=== PATIENT | female | born 1945 | race Caucasian/White ===

== ENCOUNTER 2020-06-25 17:41 | Inpatient (IN) | payer MEDICARE, OTHER ==
[~2020-06-25] VITALS: Ht 162.6 cm; Wt 66.2 kg
[2020-06-25] MEDS ORDERED: CARVEDILOL 3.125 MG TAB PO ONE (19:15)
[2020-06-25 19:18] LABS: Basophils # (auto) 0.1 10 ^3/uL (0-0.2); Basophils % (auto) 0.7 % (0.0-2.0); Eosinophils # (auto) 0.1 10 ^3/uL (0-0.8); Eosinophils % (auto) 0.4 % (0.0-7.0); Hematocrit 46.9 % (36.0-46.0); Hemoglobin 16.2 g/dL (12.2-16.2); Lymphocytes # (auto) 1.9 10 ^3/uL (0.4-5.4); Lymphocytes % (auto) 15.5 % (10.0-50.0); Mean Corpuscular Hemoglobin 30.5 pg (28.0-32.0); Mean Corpuscular Hgb Conc. 34.4 g/dL (32.0-36.0); Mean Corpuscular Volume 88.6 fL (80.0-100.0); Monocytes # (auto) 1.5 10 ^3/uL (0-1.3); Monocytes % (auto) 12.1 % (0.0-12.0); Neutrophils # (auto) 8.6 10 ^3/uL (1.6-8.6); Neutrophils % (auto) 71.3 % (37.0-80.0); Platelet Count (auto) 213 10^3/uL (140-450); Red Cell Distribution Width 13.4 % (11.8-14.3); White Blood Cell 12.1 10^3/uL (4.4-10.8)
[2020-06-25 19:38] LABS: Alanine Aminotransferase 31 U/L (13-56); Albumin 3.7 g/dL (3.4-5.0); Anion Gap 8 (5-15); Aspartate Aminotransferase 28 U/L (15-37); BUN/Creatinine Ratio 22.4; Blood Urea Nitrogen 19 mg/dL (7-18); Calcium 8.6 mg/dL (8.5-10.1); Carbon Dioxide 24 mmol/L (21-32); Chloride 107 mmol/L (98-107); GFR African American 84 mL/min; GFR Non-African American 69 mL/min; Glucose 119 mg/dL (74-106); Magnesium 2.6 mg/dL (1.6-2.6); Potassium 3.4 mmol/L (3.5-5.1); Sodium 139 mmol/L (136-145)
[2020-06-25 19:47] LABS: Alkaline Phosphatase 89 U/L (45-117); Bilirubin, Total 0.8 mg/dL (0.2-1.0); Total Protein 6.9 g/dL (6.4-8.2)
[2020-06-25] MEDS ORDERED: BACITRACIN TOP OINT 1 UD PKG TOP ONE (20:00)
[2020-06-25] MEDS ORDERED: HYDROcodone-ACET 5/325MG TAB PO ONE (20:45)
[2020-06-25 21:56] LABS: INR 0.98 (0.9-1.15); Partial Thromboplastin Time 27.4 sec (23.0-31.2)
[2020-06-25 22:36] LABS: Urine Bacteria FEW /hpf (None Seen); Urine Blood Negative /uL (Negative); Urine Specific Gravity 1.012 (1.001-1.035); Urine WBC 1 /hpf (0 - 5)
[2020-06-25] MEDS ORDERED: MORPHINE SULF INJ 2 MG/ML SYRINGE 1ML IV PRN (23:30)
[2020-06-25] MEDS ORDERED: NITROGLYCERIN 0.4 MG SL TAB SL PRN (23:30)
[2020-06-25] MEDS ORDERED: TEMAZEPAM 15 MG CAP PO PRN (23:30)
[2020-06-25] MEDS ORDERED: ONDANSETRON HCL 4 MG/2 ML VIAL IV PRN (23:30)
[2020-06-26] MEDS: HYDROcodone-ACET 5/325MG TAB PO PRN ×4 (04:26→21:22)
[2020-06-26 05:58] LABS: Basophils # (auto) 0.1 10 ^3/uL (0-0.2); Eosinophils # (auto) 0 10 ^3/uL (0-0.8); Eosinophils % (auto) 0.1 % (0.0-7.0); Hematocrit 41.5 % (36.0-46.0); Hemoglobin 14.2 g/dL (12.2-16.2); Lymphocytes # (auto) 2.1 10 ^3/uL (0.4-5.4); Lymphocytes % (auto) 18.7 % (10.0-50.0); Mean Corpuscular Hemoglobin 30.5 pg (28.0-32.0); Mean Corpuscular Hgb Conc. 34.3 g/dL (32.0-36.0); Mean Corpuscular Volume 88.9 fL (80.0-100.0); Monocytes # (auto) 1.2 10 ^3/uL (0-1.3); Monocytes % (auto) 10.8 % (0.0-12.0); Neutrophils % (auto) 69.4 % (37.0-80.0); Nucleated Red Blood Cells % 0.1 %; Platelet Count (auto) 161 10^3/uL (140-450); Red Blood Cells 4.67 10^6/uL (4.0-5.20); White Blood Cell 11.4 10^3/uL (4.4-10.8)
[2020-06-26 06:35] LABS: BUN/Creatinine Ratio 24.4; Calcium 8.8 mg/dL (8.5-10.1); Potassium 3.9 mmol/L (3.5-5.1)
[2020-06-26] MEDS: ACETAMINOPHEN 325 MG TAB PO PRN ×3 (07:41→14:19)
[2020-06-26] MEDS ORDERED: CARVEDILOL 12.5 MG TAB PO SCH ×2 (10:00)
[2020-06-26] MEDS: FAMOTIDINE 20 MG TAB PO SCH ×2 (11:24→21:00)
[2020-06-26] MEDS ORDERED: FLUT50SP28 (15:17)
[2020-06-26 15:48] VITALS: BP 156/86
[2020-06-26 22:00] VITALS: BP 138/66
[2020-06-27 05:00] VITALS: BP 137/70
[2020-06-27] MEDS ORDERED: [UNRECOGNIZED DRUG - CODE] OR (05:02)
[2020-06-27 06:38] LABS: Basophils # (auto) 0 10 ^3/uL (0-0.2); Basophils % (auto) 0.5 % (0.0-2.0); Eosinophils # (auto) 0.1 10 ^3/uL (0-0.8); Eosinophils % (auto) 1.5 % (0.0-7.0); Hematocrit 38.9 % (36.0-46.0); Hemoglobin 13.3 g/dL (12.2-16.2); Lymphocytes # (auto) 2.1 10 ^3/uL (0.4-5.4); Lymphocytes % (auto) 21.2 % (10.0-50.0); Mean Corpuscular Hemoglobin 30.3 pg (28.0-32.0); Mean Corpuscular Hgb Conc. 34.1 g/dL (32.0-36.0); Mean Corpuscular Volume 89.1 fL (80.0-100.0); Monocytes # (auto) 1.5 10 ^3/uL (0-1.3); Monocytes % (auto) 15.6 % (0.0-12.0); Neutrophils % (auto) 61.2 % (37.0-80.0); Platelet Count (auto) 174 10^3/uL (140-450); Red Blood Cells 4.37 10^6/uL (4.0-5.20); Red Cell Distribution Width 13.3 % (11.8-14.3); White Blood Cell 9.8 10^3/uL (4.4-10.8)
[2020-06-27 07:40] VITALS: BP 155/78
[2020-06-27] MEDS: HYDROcodone-ACET 5/325MG TAB PO PRN ×3 (08:24→18:38)
[2020-06-27] MEDS ORDERED: POTASSIUM CHL 20 Meq TABLET PO ONE (10:00)
[2020-06-27] MEDS: FAMOTIDINE 20 MG TAB PO SCH (10:11)
[2020-06-27 16:00] VITALS: BP 164/82
[2020-06-27 16:26] VITALS: BP 137/77
== END 2020-06-27 19:50 | disposition home health service (06) | DRG 563 ==
LOC: EDBD 17:41 → ER 17:41 → TELE 17:42 → TELE-EAST 06-26 09:23
PROVIDERS: ADMIT Nurse Practitioner; ATTEND Internal Medicine
DX: S42.141A Displaced fracture of glenoid cavity of scapula, right shoulder, initial encounter for closed fracture (principal); R65.10 Systemic inflammatory response syndrome (SIRS) of non-infectious origin without acute organ dysfunction; I95.1 Orthostatic hypotension; I16.0 Hypertensive urgency; I10 Essential (primary) hypertension; E87.6 Hypokalemia; S40.812A Abrasion of left upper arm, initial encounter; Z20.822 Contact with and (suspected) exposure to COVID-19; F41.9 Anxiety disorder, unspecified; E27.8 Other specified disorders of adrenal gland; S41.112A Laceration without foreign body of left upper arm, initial encounter; S61.213A Laceration without foreign body of left middle finger without damage to nail, initial encounter; Z88.8 Allergy status to other drugs, medicaments and biological substances; V89.2XXA Person injured in unspecified motor-vehicle accident, traffic, initial encounter; Y93.89 Activity, other specified; Y99.8 Other external cause status; Y92.410 Unspecified street and highway as the place of occurrence of the external cause
CPT/HCPCS: 36415; 70450; 71250; 72125; 73130; 74176; 80048; 80053; 81001; 83735; 83880; 84132; 84443; 84484; 85025; 85379; 85610; 85730; 87426; 93005; 93306; 93886; 93971; 97163; G0378; J2405